=== PATIENT | male | born 1995 | race Caucasian/White ===

== ENCOUNTER 2020-03-17 00:25 | Emergency (ER) | payer MEDICAID ==
[~2020-03-17] VITALS: Ht 177.8 cm; Wt 72.6 kg
[2020-03-17 00:40] VITALS: BP_SYST 117
--- NOTE | 2020-03-17 03:05 | NUR ---
PT TO BED 2 WITH SIDE RAILS UP. ALERT AND ORIENTED. C/O PAIN TO LEFT ELBOW, AND DEFORMITY NOTED.
--- NOTE | 2020-03-17 03:06 | NUR ---
ER Dr. LANCASTER at bedside examining patient.
--- NOTE | 2020-03-17 03:06 | NUR ---
Note undone in EDM - 03/17/20 at 0434 by NIURKA Patient given written and verbal discharge instructions and verbalizes understanding. ER discussed with patient the results and treatment provided. Patient in stable condition. ID arm band removed. Rx of LISA given. Patient educated on pain management and to follow up with PMD, and ORTHOPEDIC PHYSICIAN. Pain Scale 1/10. Opportunity for questions provided and answered. Medication side effect fact sheet provided.
[2020-03-17] MEDS ORDERED: HYDROcodone/ACETAMIN 7.5-325 MG TAB PO ONE (03:15)
[2020-03-17] MEDS ORDERED: MORPHINE SULFATE 10 MG/ML VIAL IM ONE (03:45)
[2020-03-17] MEDS ORDERED: DIPHENHYDRAMINE INJ 50 MG/ML VIAL IM ONE (03:45)
[2020-03-17 04:30] VITALS: BP_SYST 117
--- NOTE | 2020-03-17 04:34 | NUR ---
Patient given written and verbal discharge instructions and verbalizes understanding. ER MD discussed with patient the results and treatment provided. Patient in stable condition. ID arm band removed. Rx of NORCO given. Patient educated on pain management and to follow up with PMD, AND ORTHOPEDIC PROVIDER. Pain Scale 1/10. Opportunity for questions provided and answered. Medication side effect fact sheet provided.
== END 2020-03-17 04:30 | disposition home or self-care (01) ==
LOC: SED 00:25
DX: S42.492A Other displaced fracture of lower end of left humerus, initial encounter for closed fracture (principal); W01.0XXA Fall on same level from slipping, tripping and stumbling without subsequent striking against object, initial encounter; Y93.22 Activity, ice hockey; Y92.89 Other specified places as the place of occurrence of the external cause; Y99.8 Other external cause status
CPT/HCPCS: 29105; 73080; 96372; 99284; J1200; J2270